=== PATIENT | female | born 1995 | race American Indian/Alaskan Native ===

== ENCOUNTER 2016-07-19 02:51 | Outpatient (CLI) | payer MEDICAID, OTHER ==
[2016-07-19 03:07] VITALS: BP 106/58
[2016-07-19] MEDS ORDERED: VISTARIL PO PRN (04:08)
== END 2016-07-19 04:21 | disposition home or self-care (01) ==
LOC: TRG 02:51
PROVIDERS: ATTEND Obstetrics & Gynecology
DX: O47.1 False labor at or after 37 completed weeks of gestation (principal); Z3A.38 38 weeks gestation of pregnancy
CPT/HCPCS: 59025; Q0177

== ENCOUNTER 2016-07-19 10:29 | Inpatient (IN) | payer MEDICAID ==
[2016-07-19] MEDS ORDERED: ZOFRAN IV PRN ×2 (10:39→15:45)
[2016-07-19] MEDS ORDERED: MINERAL OIL PO PRN (10:39)
[2016-07-19] MEDS ORDERED: ePHEDrine SULFATE IV PRN ×2 (10:39→13:51)
[2016-07-19] MEDS ORDERED: XYLOCAINE 2% INFILTRATI ONE (10:39)
[2016-07-19] MEDS ORDERED: BRETHINE SUB-Q PRN (10:39)
[2016-07-19] MEDS ORDERED: BRETHINE IVP PRN (10:39)
[2016-07-19] MEDS ORDERED: STADOL IV PRN (10:39)
[2016-07-19] MEDS ORDERED: SUBLIMAZE IV PRN (10:39)
--- NOTE | 2016-07-19 10:48 | History and Physical Report ---
History of Present Illness Date of examination: 07/19/16 Date of admission: 07/19/16 10:29 Chief complaint: SROM clear fluid @ 1030 History of present illness: Pt is a 21yo BF EDC 07/29/16; EGA 38 4/7 weeks presents to L&D complaining of SROM clear fluid @ 1030 followed by irregular contractions. She received care at [facility] since 10 weeks and course has been unremarkable. records are available and GBS is Negative. Past History Past Medical History: no pertinent history Past Surgical History: no surgical history Family/Genetic History: none Social history: no significant social history, single - Obstetrical History Expected Date of Delivery: 07/29/16 Actual Gestation: 38 Week(s) 4 Day(s) : 2 Medications and Allergies Allergies Allergy/AdvReac Type Severity Reaction Status Date / Time No Known Allergies Allergy Verified 12/23/15 03:46 Home Medications Medication Instructions Recorded Confirmed Last Taken Type Vitamin 1 mg PO DAILY 07/19/16 07/19/16 07/17/16 10:00 History Review of Systems All systems: negative - Physical Exam Breasts: Positive: deferred Cardiovascular: Regular rate Lungs: Positive: Clear to auscultation Abdomen: Positive: normal appearance Genitourinary (Female): Positive: normal external genitalia Uterus: Positive: enlarged Extremities: Positive: normal - Obstetrical FHR: category 1 Uterine Contraction Monitor Mode: External Cervical Dilatation: 4 Cervical Effacement Percentage: 90 station: -2 Uterine Contraction Pattern: Regular Uterine Tone Measurement Phase: Contraction Uterine Contraction Intensity: Moderate Results Result Diagrams: 07/19/16 11:53 All other labs normal. Assessment and Plan - Patient Problems (1) 38 weeks gestation of Onset Date: 07/19/16 Current Visit: Yes Status: Acute Plan to address problem: A: IUP @ 38 4/7 weeks in labor P: Admit to L&D for expectant vaginal delivery
[2016-07-19] MEDS ORDERED: PITOCin/NS 20 UNIT/1000ML DRIP 20 UNITS/1,000 ML BAG IV SCH ×2 (11:00→16:00)
[2016-07-19] MEDS ORDERED: PITOCin/NS 30 UNIT/500ML 30 UNITS/500 ML BAG IV SCH (11:00)
[2016-07-19] MEDS: LACTATED RINGERS 1,000 ML IV SCH ×2 (11:28→14:44)
[2016-07-19 11:57] LABS: Hematocrit 36.7 % (30.3-42.9); Hemoglobin 11.8 gm/dl (10.1-14.3); Mean Corpuscular HGB Conc 32 % (30-34); Mean Corpuscular Hemoglobin 27 pg (28-32); Mean Corpuscular Volume 85 fl (79-97); Platelet Count 148 K/mm3 (140-440); Red Blood Count 4.33 M/mm3 (3.65-5.03); White Blood Count 8.9 K/mm3 (4.5-11.0)
[2016-07-19] MEDS ORDERED: ePHEDrine SULFATE ONE (12:12)
[2016-07-19] MEDS ORDERED: fentaNYL-BUPIV 2 MCG/ML-0.125% 200 MCG/100 ML BAG EPIDURAL ONE (13:10)
[2016-07-19] MEDS ORDERED: NARCAN 2 MG/2 ML IV PRN (13:48)
--- NOTE | 2016-07-19 13:49 | Anesthesia Consultation ---
Anesthesia Consult and Med Hx Date of service: 07/19/16 - Airway Anesthetic Teeth Evaluation: Good ROM Head & Neck: Adequate Mental/Hyoid Distance: Adequate Intubation Access Assessment: Probably Good - Pre-Operative Health Status ASA Pre-Surgery Classification: ASA2, Emergency Proposed Anesthetic Plan: Epidural, Spinal - Pulmonary Hx Asthma: No COPD: No Hx Pneumonia: No - Cardiovascular System Hx Hypertension: No - Central Nervous System Hx Seizures: No Hx Psychiatric Problems: No - Endocrine Hx Renal Disease: No Hx End Stage Renal Disease: No Hx Hypothyroidism: No Hx Hyperthyroidism: No - Hematic Hx Anemia: No Hx Sickle Cell Disease: No - Other Systems Hx Alcohol Use: No
[2016-07-19] MEDS ORDERED: fentaNYL-BUPIV 2 MCG/ML-0.125% 200 MCG/100 ML BAG EPIDURAL SCH (14:00)
--- NOTE | 2016-07-19 15:44 | Procedure Note ---
OB Delivery Note - Delivery Date of Delivery: 07/19/16 Surgeon: PAU ALBERT Estimated blood loss: 200cc - Vaginal Delivery presentation: vertex Delivery position: OA Intrapartum events: none Delivery induction: none Delivery augmentation: rupture of membranes Delivery monitor: external FHT, external uterine Route of delivery: Delivery placenta: spontaneous Delivery cord: 3 umbilical vessels Episiotomy: none Delivery laceration: 1st degree (perineal), vaginal side wall Delivery repair: vicryl Anesthesia: epidural - A at 1 minute: 8 at 5 minutes: 9 Infant Gender: Female (2798gms)
[2016-07-19] MEDS ORDERED: TYLENOL PO PRN (15:45)
[2016-07-19] MEDS ORDERED: BENADRYL PO PRN (15:45)
[2016-07-19] MEDS ORDERED: DERMOPLAST TP PRN (15:45)
[2016-07-19] MEDS ORDERED: TUCKS PAD TP PRN (15:45)
[2016-07-19] MEDS ORDERED: PHENERGAN PR PRN (15:45)
[2016-07-19] MEDS ORDERED: LANSINOH TP PRN (15:45)
[2016-07-19] MEDS ORDERED: MILK OF MAGNESIA PO PRN (15:45)
[2016-07-19] MEDS ORDERED: NORCO 5/325 PO PRN (15:45)
[2016-07-19] MEDS ORDERED: DULCOLAX PR PRN (15:45)
[2016-07-19] MEDS ORDERED: PHENERGAN PO PRN (15:45)
[2016-07-19] MEDS ORDERED: SODIUM CHLORIDE FLUSH SYRINGE 10 ML IV NR (16:00)
[2016-07-19] MEDS: MOTRIN PO SCH ×2 (18:48→23:53)
[2016-07-19] MEDS: COLACE PO SCH (22:06)
[2016-07-19] MEDS: FEOSOL PO SCH (22:06)
[2016-07-20] MEDS: MOTRIN PO SCH ×3 (05:41→17:54)
[2016-07-20] MEDS ORDERED: M-M-R II VACCINE SUB-Q ONE (06:00)
[2016-07-20] MEDS ORDERED: BOOSTRIX IM ONE (06:00)
[2016-07-20 06:03] LABS: Hematocrit 26.4 % (30.3-42.9); Hemoglobin 8.4 gm/dl (10.1-14.3)
--- NOTE | 2016-07-20 11:40 | Progress Note ---
Assessment and Plan - Patient Problems (1) 38 weeks gestation of Onset Date: 07/19/16 Current Visit: Yes Status: Resolved (2) (normal spontaneous vaginal delivery) Onset Date: 07/20/16 Current Visit: Yes Status: Resolved Plan to address problem: A: S/P - PPD #1 Doing well Asymptomatic anemia - stable P: May go home tomorrow (3) Acute blood loss anemia Onset Date: 07/20/16 Current Visit: Yes Status: Acute Subjective - Subjective Date of service: 07/20/16 Principal diagnosis: s/p - PPD #1 Interval history: Pt is feeling well without complaints. Bleeding improved. Patient reports: appetite normal, voiding normally, pain well controlled, flatus , ambulating normally : doing well, nursing well Objective - Vital Signs Latest vital signs: Vital Signs Temp Pulse Pulse Pulse Resp BP BP 07/20/16 07:57 97.8 F 83 20 95/56 07/19/16 23:30 98.6 F 72 16 98/50 07/19/16 19:25 98.6 F 70 16 98/70 07/19/16 18:00 98.7 F 80 20 103/60 07/19/16 16:26 81 107/66 07/19/16 16:25 79 07/19/16 16:20 80 07/19/16 16:15 77 07/19/16 16:11 78 108/70 07/19/16 16:10 79 07/19/16 16:05 76 07/19/16 16:00 77 07/19/16 15:56 74 105/66 07/19/16 15:55 70 07/19/16 15:50 76 07/19/16 15:45 82 07/19/16 15:40 78 100/60 07/19/16 15:39 76 105/65 07/19/16 15:30 80 107/56 07/19/16 15:25 70 106/58 07/19/16 15:22 82 115/55 07/19/16 15:17 96 H 124/63 07/19/16 15:11 88 111/58 07/19/16 15:05 77 115/62 07/19/16 15:00 99 H 104/62 07/19/16 14:56 75 113/65 07/19/16 14:51 83 105/56 07/19/16 14:45 82 109/62 07/19/16 14:40 82 107/58 07/19/16 14:39 84 07/19/16 14:36 86 109/58 07/19/16 14:34 90 07/19/16 14:32 84 110/57 07/19/16 14:29 91 H 07/19/16 14:26 78 110/60 07/19/16 14:24 88 07/19/16 14:23 110 H 07/19/16 14:22 88 112/56 07/19/16 14:20 93 H 113/61 07/19/16 14:16 134 H 126/78 07/19/16 14:11 88 115/70 07/19/16 14:05 82 110/64 07/19/16 14:02 77 126/75 07/19/16 13:57 75 107/64 07/19/16 13:51 76 110/66 07/19/16 13:47 66 112/67 07/19/16 13:40 76 95/51 07/19/16 13:35 95 H 112/55 07/19/16 13:31 86 07/19/16 13:30 90 105/56 07/19/16 13:26 92 H 07/19/16 13:25 92 H 114/63 07/19/16 12:21 98 H 07/19/16 12:20 102 H 07/19/16 12:17 96.9 F L 78 16 117/72 07/19/16 12:16 77 Pulse Ox 07/20/16 07:57 07/19/16 23:30 07/19/16 19:25 07/19/16 18:00 07/19/16 16:26 07/19/16 16:25 98 07/19/16 16:20 98 07/19/16 16:15 97 07/19/16 16:11 07/19/16 16:10 98 07/19/16 16:05 98 07/19/16 16:00 98 07/19/16 15:56 07/19/16 15:55 98 07/19/16 15:50 98 07/19/16 15:45 99 07/19/16 15:40 99 07/19/16 15:39 07/19/16 15:30 07/19/16 15:25 07/19/16 15:22 07/19/16 15:17 07/19/16 15:11 07/19/16 15:05 07/19/16 15:00 07/19/16 14:56 07/19/16 14:51 07/19/16 14:45 07/19/16 14:40 07/19/16 14:39 100 07/19/16 14:36 07/19/16 14:34 100 07/19/16 14:32 07/19/16 14:29 100 07/19/16 14:26 07/19/16 14:24 100 07/19/16 14:23 75 L 07/19/16 14:22 07/19/16 14:20 07/19/16 14:16 07/19/16 14:11 07/19/16 14:05 07/19/16 14:02 07/19/16 13:57 07/19/16 13:51 07/19/16 13:47 07/19/16 13:40 07/19/16 13:35 07/19/16 13:31 99 07/19/16 13:30 07/19/16 13:26 100 07/19/16 13:25 07/19/16 12:21 96 07/19/16 12:20 80 L 07/19/16 12:17 100 07/19/16 12:16 100 Intake and Output 07/19/16 07/20/16 07/20/16 22:59 06:59 14:59 Intake Total 915 700 240 Output Total 1000 Balance -85 700 240 Intake: IV 125 Right Hand 125 Oral 490 400 240 Intake, Free Water 300 300 Output: Urine 1000 Indwelling Catheter 400 Void 600 Other: Total, Intake Amount 250 400 240 Total, Output Amount 600 Voiding Method Toilet # Voids Void 1 1 Estimated Blood Loss 200 - Exam Breasts: Present: deferred Cardiovascular: Present: Regular rate Lungs: Present: Clear to auscultation Abdomen: Present: normal appearance, soft Uterus: Present: normal, firm, fundal height below umbilicus Extremities: Present: normal - Labs Labs: Abnormal lab results 07/19/16 07/20/16 Range/Units 11:53 05:39 Hgb 8.4 L D (10.1-14.3) gm/dl Hct 26.4 L D (30.3-42.9) % MCH 27 L (28-32) pg Laboratory Tests 07/19/16 07/19/16 07/20/16 11:30 11:53 05:39 WBC 8.9 RBC 4.33 Hgb 11.8 8.4 L D Hct 36.7 26.4 L D MCV 85 MCH 27 L MCHC 32 RDW 14.0 Plt Count 148 Blood Type B POSITIVE Antibody Screen TNR DANIELLE Antibody Screen Negative
--- NOTE | 2016-07-20 11:45 | Discharge Summary ---
Providers - Providers Date of Admission: 07/19/16 10:29 Date of discharge: 07/21/16 Attending physician: PAU ALBERT Primary care physician: PAU ALBERT Hospitalization Reason for admission: active labor, rupture of membranes, IUP at term Delivery: Episiotomy: none Laceration: 1st degree Other procedures: none complications: none Discharge diagnosis: IUP at term delivered baby: female Hospital course: Unremarkable. Condition at discharge: Good Disposition: DISCHARGED TO HOME OR SELFCARE - Discharge Diagnoses (1) 38 weeks gestation of Status: Resolved (2) (normal spontaneous vaginal delivery) Status: Resolved (3) Acute blood loss anemia Status: Acute Plan - Discharge Medications Prescriptions: Ferrous Sulfate [Feosol 325 MG tab] 325 mg PO BID #60 tablet Ibuprofen [Motrin 600 MG tab] 600 mg PO Q6H #30 tablet Vit-Fe Fumar-FA [ Vitamin] 1 each PO QDAY #30 tablet - Provider Discharge Summary Activity: routine, no sex for 6 weeks, no heavy lifting 4 weeks, no strenuous exercise Diet: routine Instructions: routine Additional instructions: [] Smoking cessation referral if applicable(refer to patient education folder for contact #) [] Refer to [facility] Booklet Call your doctor immediately for: * Fever > 100.5 * Heavy vaginal bleeding ( >1 pad per hour) * Severe persistent headache * Shortness of breath * Reddened, hot, painful area to leg or breast * Drainage or odor from incision. * Keep incision clean and dry at all times and follow doctor's instructions regarding bathing/showering - Follow up plan Follow up: PAU ALBERT MD [Primary Care Provider] - 6 Weeks
[2016-07-20] MEDS ORDERED: FLUARIX QUAD 2016-2017(36 MOS+) IM ONE (12:00)
[2016-07-20] MEDS: COLACE PO SCH (12:29)
[2016-07-20] MEDS: FEOSOL PO SCH (12:41)
[2016-07-20] MEDS: PRENATAL VITAMIN PO SCH (12:51)
[2016-07-21] MEDS: FEOSOL PO SCH ×2 (00:29→13:18)
[2016-07-21] MEDS: COLACE PO SCH ×2 (00:37→13:17)
[2016-07-21] MEDS: MOTRIN PO SCH ×3 (02:19→13:17)
[2016-07-21] MEDS ORDERED: BOOSTRIX IM ONE (06:00)
[2016-07-21] MEDS: PRENATAL VITAMIN PO SCH (13:17)
[2016-07-21 13:31] VITALS: BP 112/63
== END 2016-07-21 13:45 | disposition home or self-care (01) | DRG 775 ==
LOC: LD 10:29 → OB 18:13
PROVIDERS: ADMIT Obstetrics & Gynecology; ATTEND Obstetrics & Gynecology
PROC: 10E0XZZ Delivery of Products of Conception, External Approach (ICD-10-PCS; principal; 2016-07-19)
PROC: 0HQ9XZZ Repair Perineum Skin, External Approach (ICD-10-PCS; 2016-07-19)
PROC: 3E0S3CZ (ICD-10-PCS; 2016-07-19)
PROC: 00HU33Z Insertion of Infusion Device into Spinal Canal, Percutaneous Approach (ICD-10-PCS; 2016-07-19)
DX: O70.0 First degree perineal laceration during delivery (principal); D62 Acute posthemorrhagic anemia; Z3A.38 38 weeks gestation of pregnancy; Z37.0 Single live birth
CPT/HCPCS: 36415; 85014; 85018; 85027; 86850; 86900; 86901; 90471; 90686; 90715; 99211; G0008; G0463; J2590; J3010; J7120